=== PATIENT | female | born 1980 | race Caucasian/White ===

== ENCOUNTER → 2021-07-23 | Outpatient (CLI) | payer BC ==
[2021-07-23 08:58] VITALS: BP 135/99; PULSE 101; RESP 18; TEMP 98.1
--- NOTE | 2021-07-23 09:43 | P.GSHP ---
History of Present Illness H&P Date: 07/23/21 Chief Complaint: Abnormal right breast mammogram Roxanne is a 41 year old white female seen in consultation for Dr. Mckeon regarding an abnormal right breast mammogram. Bilateral mammogram was performed on [id number]. The patient was noted to have calcifications in the right breast for punctate fine pleomorphic with group distribution seen only on the cc slices. These were not visualized on the MLO projection. No lesions of concern were noted in the left breast. The patient was recommended to have additional views of the right breast. She does not feel anything in either breast. The patient does not feel any lumps masses or nodules of concern in either breast. She's not complain of any nipple discharge or skin changes. She has not had any recent trauma or infection in the breast. She's never had any surgery or biopsies on her breast. Caffeine: 1 cup coffee/day nicotine: none chocolate:occasional BCP: 16 years stopped at 28 hormones:none Family history: mother: lung cancer smoker Hormonal History; menarche: 9 M1, breast fed: no, age at first : 28 periods regular LMP: 1 week ago Surgical history: D&C Cauterization of ethmoid vein Medical History: none Social History: Nicotine: Negative Alcohol:occasional drugs: none - Constitutional Constitutional: Denies chills, Denies fever - EENT Eyes: denies blurred vision, denies pain Ears: deny: decreased hearing, tinnitus Ears, nose, mouth and throat: Denies headache, Denies sore throat - Breasts Breasts: bilateral: as per HPI - Cardiovascular Cardiovascular: Denies chest pain, Denies shortness of breath - Respiratory Respiratory: Denies cough, Denies 7 - Gastrointestinal Gastrointestinal: Denies abdominal pain, Denies diarrhea, Denies nausea, Denies vomiting - Genitourinary (Female) Genitourinary: Denies dysuria, Denies hematuria - Menstruation Menstruation: Reports period normal - Genitourinary (Male) Genitourinary: Denies dysuria, Denies hematuria - Integumentary Integumentary: Denies pruritus, Denies rash - Neurological Neurological: Denies numbness, Denies weakness - Psychiatric Psychiatric: Denies anxiety, Denies depression - Endocrine Endocrine: Denies fatigue, Denies weight change - Hematologic/Lymphatic Comment: none - Allergic/Immunologic Allergic/Immunologic: Reports seasonal allergies Past Medical History History of Any Multi-Drug Resistant Organisms: None Reported Smoking Status: Never smoker Medications and Allergies Home Medications Medication Instructions Recorded Confirmed Type Ascorbic Acid [Vitamin C] 500 mg PO DAILY 07/23/21 07/23/21 History Cholecalciferol [Vitamin D3 (25 25 mcg PO DAILY 07/23/21 07/23/21 History Mcg = 1000 Iu)] Loratadine [Claritin] 10 mg PO DAILY 07/23/21 07/23/21 History Multivitamin [Multivitamins Adult 1 each PO DAILY 07/23/21 07/23/21 History Gummies] Zinc 50 mg PO DAILY 07/23/21 07/23/21 History Allergies Allergy/AdvReac Type Severity Reaction Status Date / Time Sulfa (Sulfonamide AdvReac Rash/Hives Unverified 07/23/21 08:55 Antibiotics) Surgical - Exam Vital Signs Temp Pulse Resp BP Pulse Ox 98.1 F 101 H 18 135/99 99 07/23/21 08:55 07/23/21 08:55 07/23/21 08:55 07/23/21 08:55 07/23/21 08:55 BMI 28.3 - General well developed, well nourished, no distress - Eyes normal ocular movement - ENT no hearing loss - Neck no masses, trachea midline - Respiratory normal respiratory effort, clear to auscultation - Cardiovascular Rhythm: regular Heart Sounds: normal: S1, S2 - Abdomen Abdomen: soft, non tender, no guarding, no rigid, no rebound - Integumentary normal turgor - Musculoskeletal normal gait - Psychiatric oriented to time, oriented to person, oriented to place, speech is normal, memory intact Breast Exam: BRA: 36C inspection: Bilateral grade 2 ptosis Palpation: Right breast: Multiple positional exam fibrocystic changes no dominant masses or nodules of concern Right axilla: No adenopathy of concern Left breast: Multi-positional exam fibrocystic changes no dominant masses or nodules of concern Left axilla: No adenopathy of concern Results Mammogram report reviewed from [id number] Assessment and Plan Assessment: Impression: Abnormal right breast mammogram from [id number] Fibrocystic breast changes Dense breast There is nothing on physical exam which were 1 interventional biopsy at this time Plan: 1. Review films from [id number] 2. Most likely recommend additional views of right breast await these results Cc: Dr. Mckeon
--- NOTE | 2021-07-23 11:03 | MM ---
Reason for exam: additional evaluation requested from abnormal screening. Last mammogram was performed 2 months ago. Physical Findings: Breast exam performed by Dr. Moore. MG 3D Work Up W/Cad RT CC with magnification, ML with magnification, and ML view(s) were taken of the right breast. Prior study comparison: May 10, 2021, mammogram. The breast tissue is heterogeneously dense. This may lower the sensitivity of mammography. Finding: There are 5-6 suspicious, grouped/clustered calcifications in the outer quadrant, middle position of the right breast. These results were verbally communicated with the patient and result sheet given to the patient on 07/23/21. ASSESSMENT: Suspicious, BI-RAD 4 RECOMMENDATION: Surgical consultation and stereotactic core biopsy of the right breast. Called Dr. Moore's office with mammographic findings, office to contact patient. Biopsy scheduled for 08/12/21 at 8:00. PRELIMINARY REPORT CALLED AND FAXED TO DR. MOORE ON 07/23/21.
== END ==
LOC: WWCWWP 08:39
PROVIDERS: ATTEND Surgery
DX: R92.8 Other abnormal and inconclusive findings on diagnostic imaging of breast (principal); N60.11 Diffuse cystic mastopathy of right breast; N60.12 Diffuse cystic mastopathy of left breast; R92.2 Inconclusive mammogram; Z88.2 Allergy status to sulfonamides
CPT/HCPCS: 77061; 77065

== ENCOUNTER → 2021-08-12 | Day surgery (SDC) | payer BC ==
[2021-08-12 07:25] VITALS: RESP 16
[2021-08-12 08:54] VITALS: BP 160/99; PULSE 79; TEMP 98.6
--- NOTE | 2021-08-12 09:00 | P.PCN ---
Date of Procedure: 08/12/21 Preoperative Diagnosis: Microcalcifications of concern right breast Postoperative Diagnosis: Same Procedure(s) Performed: Right breast stereotactic core biopsy Anesthesia: local Surgeon: Zehra Moore Pathology: other (Breast tissue/microcalcifications noted in radiograph of specimen) Condition: stable Indications for Procedure: Microcalcifications of concern right breast Operative Findings: Radiograph of specimen reveals microcalcifications of concern Description of Procedure: The patient is a 41-year-old white female who was noted on mammography to have microcalcifications of concern in the right breast. These were in the middle position of the right breast. Stereotactic core biopsy was recommended. Risks and benefits of the procedure were discussed with the patient. Risks include but are not limited to bleeding, infection, reaction to the anesthetic. If the lesion of concern could not be adequately visualized further recommendation would follow. The patient was brought to the [facility] core biopsy room. A emergency medical technician basic film was obtained. The area of concern was identified. This was confirmed with Dr. Corona from radiology. The breast was prepped using Betadine. The lesion was targeted. 20 mL of 1% lidocaine were used to anesthetize the area of concern. A 9-gauge vacuum-assisted core rotating biopsy needle was driven to the correct coordinates. CC from above approach was utilized. A prefire film was obtained and the needle appeared to be in the correct location. The needle was fired and a post-fire film revealed the needle to be in the correct location. 13 core biopsy specimens were obtained. Radiograph of the specimen revealed the calcifications of concern. A secure skinny top hat clip was placed. The clip was noted to be in the correct location. The patient tolerated the procedure in stable condition. The patient will follow-up with Dr. Vick next week. Her specimen was sent to pathology.
--- NOTE | 2021-08-12 11:42 | MM ---
The patient is a 41-year-old white female who was noted on mammography to have microcalcifications of concern in the right breast. These were in the middle position of the right breast. Stereotactic core biopsy was recommended. Risks and benefits of the procedure were discussed with the patient. Risks include but are not limited to bleeding, infection, reaction to the anesthetic. If the lesion of concern could not be adequately visualized further recommendation would follow. The patient was brought to the [facility] core biopsy room. A web solutions architect film was obtained. The area of concern was identified. This was confirmed with Dr. Corona from radiology. The breast was prepped using Betadine. The lesion was targeted. 20 mL of 1% lidocaine were used to anesthetize the area of concern. A 9-gauge vacuum-assisted core rotating biopsy needle was driven to the correct coordinates. A CC from above approach was utilized. A prefire film was obtained and the needle appeared to be in the correct location. The needle was fired and a post-fire film revealed the needle to be in the correct location. 13 core biopsy specimens were obtained. Radiograph of the specimen revealed the calcifications of concern. A secure skinny top hat clip was placed. The clip was noted to be in the correct location. The patient tolerated the procedure in stable condition. The patient will follow-up with Dr. Vick next week. Her specimen was sent to pathology. [facility] MEDICAL CENTERPatricio
== END | disposition home or self-care (01) ==
LOC: RADMAMWWP 07:06
PROVIDERS: ATTEND Surgery
DX: N60.21 Fibroadenosis of right breast (principal); R92.0 Mammographic microcalcification found on diagnostic imaging of breast
CPT/HCPCS: 88305; 19081; A4648; J2001

== ENCOUNTER → 2021-08-18 | Outpatient (CLI) | payer BC ==
[2021-08-18 14:30] VITALS: BP 148/108; PULSE 105; RESP 18
--- NOTE | 2021-08-18 14:57 | P.PN ---
Subjective Progress Note Date: 08/18/21 Principal diagnosis: fibrocystic breast changes Roxanne is a 41 year old white female status post right breast stero biopsy on 08-12-21. Pathology was consistent with fibrocystic change. He tolerated the procedure without difficulty. She did develop some ecchymosis at the site. Objective - Vital Signs Vital signs: Vital Signs Temp Pulse 105 H 08/18/21 14:25 Resp 18 08/18/21 14:25 BP 148/108 08/18/21 14:25 Pulse Ox 98 08/18/21 14:25 Intake & Output 08/17/21 08/18/21 08/18/21 18:59 06:59 18:59 Weight 77.111 kg - Exam BMI 27.4 - Constitutional General appearance: Present: cooperative - EENT Eyes: Present: EOMI ENT: Present: hearing grossly normal - Neck Neck: Present: normal ROM - Respiratory Respiratory: bilateral: CTA - Cardiovascular Rhythm: regular Heart sounds: normal: S1, S2 - Integumentary Integumentary Comment(s): Biopsy site right breast no evidence of infection Mild ecchymosis and small hematoma at biopsy site Assessment and Plan Assessment: Impression: Radiographic abnormality right breast status post her tactic core biopsy pathology benign, [id number] Plan: 1. Right breast mammogram in 6 months with physician exam at that time CC: Dr. Mckeon
== END ==
LOC: WWCWWP 14:01
PROVIDERS: ATTEND Surgery
DX: R92.8 Other abnormal and inconclusive findings on diagnostic imaging of breast (principal); Z88.2 Allergy status to sulfonamides

== ENCOUNTER → 2022-02-28 | Outpatient (CLI) | payer BC ==
--- NOTE | 2022-02-28 10:53 | MM ---
Reason for Exam: Follow-up at short interval from prior study. Last screening mammogram was performed 10 month(s) ago. Patient History: Menarche at age 10. First Full-Term at age 27. Premenopausal. 08/12/2021, Benign Core Biopsy on the right side. Last menstrual period: 02/21/2022 Risk Values: Carolann 5 year model risk: 1.3%. NCI Lifetime model risk: 13.0%. Prior Study Comparison: 05/10/2021 Screening Mammogram, Unknown. 07/23/2021 Right Diagnostic Mammogram, [facility]. Tissue Density: Right: The breast tissue is heterogeneously dense. This may lower the sensitivity of mammography. Findings: Analyzed By CAD. Microclip 9-10 o'clock right breast centrally from prior biopsy. No suspicious recurrent microcalcifications or other discrete abnormality is seen. Overall Assessment: Benign, BI-RAD 2 Management: Screening Mammogram of both breasts in 2 months. In time for the patient's annual exam. Patient should continue monthly self breast exams. Electronically signed and approved by: Edwardo Ellison M.D. Radiologist
== END | disposition home or self-care (01) ==
LOC: RADMAMWWP 07:43
PROVIDERS: ATTEND Surgery
DX: R92.8 Other abnormal and inconclusive findings on diagnostic imaging of breast (principal)
CPT/HCPCS: 77061; 77065

== ENCOUNTER → 2023-12-05 | Outpatient (CLI) | payer BC ==
--- NOTE | 2023-12-06 08:34 | MM ---
Reason for Exam: Screening (asymptomatic). Last mammogram was performed 1 year(s) and 1 month(s) ago. Patient History: Menarche at age 10. First Full-Term at age 27. Premenopausal. 08/12/2021, Benign Core Biopsy on the right side. Risk Values: Carolann 5 year model risk: 1.4%. NCI Lifetime model risk: 12.7%. Prior Study Comparison: 07/23/2021 Right Diagnostic Mammogram, [facility]. 02/28/2022 Right MG 3D diag mammo w/cad RT, [facility]. 10/13/2022 Bilateral MG 3D screening mammo w/cad, [facility]. Tissue Density: The breasts are heterogeneously dense, which may obscure small masses. Findings: Analyzed By CAD. Asymmetric nodular density 3 cm from the nipple in upper left breast measuring 6 to 7 mm in size. Additional views are recommended. Microclip marker right breast. No suspicious microcalcifications within either breast at this time. Overall Assessment: Incomplete: need additional imaging evaluation, BI-RAD 0 Management: Diagnostic Mammogram of the left breast. . Patient should continue monthly self-breast exams. A clinical breast exam by your physician is recommended on an annual basis. This exam should not preclude additional follow-up of suspicious palpable abnormalities. Note on Carolann scores and lifetime risk: 1. A Carolann score greater than 3% is considered moderate risk. If this is the case, consider specialist referral to assess eligibility for a risk reducing agent. 2. If overall lifetime risk for the development of breast cancer is 20% or higher, the patient may qualify for future screening with alternating mammogram and breast MRI. Electronically signed and approved by: Ernesto Rehman M.D. Radiologis
== END | disposition home or self-care (01) ==
LOC: RADMAMWWP 07:07
PROVIDERS: ATTEND Family Medicine
DX: Z12.31 Encounter for screening mammogram for malignant neoplasm of breast (principal)
CPT/HCPCS: 77063; 77067

== ENCOUNTER → 2023-12-12 | Outpatient (CLI) | payer BC ==
--- NOTE | 2023-12-12 14:28 | MM ---
Reason for Exam: Additional evaluation requested from abnormal screening. Last screening mammogram was performed less than 1 month ago. Patient History: Menarche at age 10. First Full-Term at age 27. Premenopausal. 08/12/2021, Benign Core Biopsy on the right side. Risk Values: Carolann 5 year model risk: 1.4%. NCI Lifetime model risk: 12.7%. Prior Study Comparison: 02/28/2022 Right MG 3D diag mammo w/cad RT, [facility]. 10/13/2022 Bilateral MG 3D screening mammo w/cad, [facility]. 12/05/2023 Bilateral MG 3D screening mammo w/cad, [facility]. Tissue Density: Left: The breasts are heterogeneously dense, which may obscure small masses. Findings: Analyzed By CAD. The breast and centrally located asymmetric density anterior to middle depth left breast on the CC view does not persist on spot 3-D images. Findings compatible with superimposition shadow. Overall Assessment: Benign, BI-RAD 2 Management: Screening Mammogram of both breasts in 1 year. Back on schedule. Results were given to the patient verbally at the time of exam. Patient should continue monthly self-breast exams. A clinical breast exam by your physician is recommended on an annual basis. This exam should not preclude additional follow-up of suspicious palpable abnormalities. Note on Carolann scores and lifetime risk: 1. A Carolann score greater than 3% is considered moderate risk. If this is the case, consider specialist referral to assess eligibility for a risk reducing agent. 2. If overall lifetime risk for the development of breast cancer is 20% or higher, the patient may qualify for future screening with alternating mammogram and breast MRI. Electronically signed and approved by: Edwardo Ellison M.D. Radiologist
== END | disposition home or self-care (01) ==
LOC: RADMAMWWP 13:54
PROVIDERS: ATTEND Registered Nurse Critical Care Medicine
DX: Z12.31 Encounter for screening mammogram for malignant neoplasm of breast (principal); R92.8 Other abnormal and inconclusive findings on diagnostic imaging of breast; R92.332 Mammographic heterogeneous density, left breast
CPT/HCPCS: 77061; 77065

== ENCOUNTER → 2025-01-06 | Outpatient (CLI) | payer BC ==
--- NOTE | 2025-01-06 09:00 | MM ---
Reason for Exam: Screening (asymptomatic). Last mammogram was performed 1 year(s) and 1 month(s) ago. Patient History: Menarche at age 10. First Full-Term at age 27. Premenopausal. 08/12/2021, Benign Core Biopsy on the right side. Risk Values: Carolann 5 year model risk: 1.4%. NCI Lifetime model risk: 12.5%. Prior Study Comparison: 10/13/2022 Bilateral MG 3D screening mammo w/cad, [facility]. 12/05/2023 Bilateral MG 3D screening mammo w/cad, [facility]. 12/12/2023 Left MG 3D work up w/cad LT, [facility]. Tissue Density: The breasts are heterogeneously dense, which may obscure small masses. Findings: Analyzed By CAD. Microclip right breast from prior biopsy. There is no suspicious group of microcalcifications or new suspicious mass in either breast. Overall Assessment: Benign, BI-RAD 2 Management: Screening Mammogram of both breasts in 1 year. Patient should continue monthly self-breast exams. A clinical breast exam by your physician is recommended on an annual basis. This exam should not preclude additional follow-up of suspicious palpable abnormalities. Note on Carolann scores and lifetime risk: 1. A Acrolann score greater than 3% is considered moderate risk. If this is the case, consider specialist referral to assess eligibility for a risk reducing agent. 2. If overall lifetime risk for the development of breast cancer is 20% or higher, the patient may qualify for future screening with alternating mammogram and breast MRI. [facility], , 01/06/2025 8:57 AM. Electronically signed and approved by: Edwardo Ellison M.D. Radiologist
== END | disposition home or self-care (01) ==
LOC: RADMAMWWP 07:35
PROVIDERS: ATTEND Family Medicine
DX: Z12.31 Encounter for screening mammogram for malignant neoplasm of breast (principal); R92.333 Mammographic heterogeneous density, bilateral breasts
CPT/HCPCS: 77063; 77067